=== PATIENT | female | born 1950 | race Caucasian/White ===

== ENCOUNTER → 2020-07-22 | Outpatient (CLI) | payer MEDICARE ==
--- NOTE | 2020-07-22 15:53 | REP ---
INDICATION: HUNTER CYST? LEFT KNEE. COMPARISON: None. TECHNIQUE: Real-time sonographic evaluation of left popliteal fossa are performed. FINDINGS: There is a large complex cystic mass in the left popliteal fossa containing thick septations and confluent echoes. This measures 9.5 x 4.1 x 6.3 cm. Popliteal vein is patent with no intraluminal thrombus. IMPRESSION: Large complex cystic mass left popliteal fossa containing thick septations and confluent echoes. It measures 9.5 x 4.1 x 6.3 cm. Differential diagnosis includes, but is not limited to, complex ganglion cyst, complex synovial cyst and complex meniscal cyst. <Electronically signed by Kike Israel > 07/22/20 [id number]
== END ==
LOC: M RAD 13:56
DX: M71.22 Synovial cyst of popliteal space [Baker], left knee (principal)

== ENCOUNTER → 2020-10-07 | Outpatient (CLI) | payer MEDICARE ==
--- NOTE | 2020-10-07 10:40 | REP ---
INDICATION: LT LEG PAIN ? DVT COMPARISON: None. TECHNIQUE: Israel scale and color Doppler evaluation using linear high frequency transducer. FINDINGS: Ultrasound examination of the left lower extremity deep venous structures from the common femoral vein to the popliteal vein demonstrates normal compressibility flow and wave patterns in response to respiration and augmentation. There is no evidence for deep venous thrombosis. Multiple lymph nodes in the left groin are identified measuring up to 32 x 7 x 13 mm. Complex cystic lesion in the popliteal fossa measuring 7.8 x 3.1 x 4.8 cm appears slightly decreased in size and complexity as compared to prior examination. IMPRESSION: 1. No evidence for deep venous thrombosis. 2. Complex cystic lesion in the left popliteal fossa appears slightly decreased and less complex as compared with prior examination. 3. Left groin adenopathy likely reactive. <Electronically signed by Bennett Sanchez > 10/07/20 [id number]
== END ==
LOC: M RAD 09:52
PROVIDERS: ATTEND Internal Medicine
DX: M79.605 Pain in left leg (principal)

== ENCOUNTER → 2020-10-13 | Outpatient (CLI) | payer MEDICARE ==
[2020-10-13 11:46] LABS: HEMATOCRIT 35.2 % (36.0-47.0); HEMOGLOBIN 10.9 g/dl (12.0-15.5); MEAN CORPUSCULAR HEMOGLOBIN 28.5 pg (27.0-33.0); MEAN CORPUSCULAR VOLUME 92.1 fl (80.0-96.0); PLATELET COUNT, AUTOMATED 495 10^3/uL (150-450); RED BLOOD COUNT 3.82 10^6/uL (4.00-5.40); WHITE BLOOD COUNT 6.1 10^3/uL (4.0-10.0)
[2020-10-13 11:54] LABS: APPEARANCE, URINE CLEAR (CLEAR); BACTERIA, URINE AUTO NEGATIVE (NEGATIVE); BILIRUBIN, URINE AUTO NEGATIVE (NEGATIVE); BLOOD, URINE BLOOD NEGATIVE (NEGATIVE); COLOR, URINE YELLOW (YELLOW); GLUCOSE, URINE (UA) AUTO NEGATIVE (NEGATIVE); KETONE, URINE AUTO NEGATIVE (NEGATIVE); LEUKOCYTE ESTERASE, URINE AUTO NEGATIVE (NEGATIVE); NITRITE, URINE AUTO NEGATIVE (NEGATIVE); PROTEIN, URINE AUTO NEGATIVE (NEGATIVE); RBC, URINE AUTO 2 /HPF (0-3); SPECIFIC GRAVITY URINE AUTO 1.009 (1.002-1.035); SQUAMOUS EPITHELIAL CELL UR AU 0 /HPF (0-6); UROBILINOGEN, URINE AUTO 0.2 mg/dL (0.0-2.0); WBC, URINE AUTO 1 /HPF (0-3)
[2020-10-13 12:21] LABS: ERYTHROCYTE SEDIMENTATION RATE 62 mm/hr (0-30)
[2020-10-13 12:50] LABS: ALBUMIN 3.1 GM/DL (3.2-5.2); ALT/SGPT 21 U/L (12-78); BILIRUBIN,TOTAL 0.4 MG/DL (0.2-1.0); BLOOD UREA NITROGEN 14 MG/DL (7-18); CALCIUM LEVEL 9.3 MG/DL (8.8-10.2); CARBON DIOXIDE LEVEL 31 MEQ/L (21-32); CHLORIDE LEVEL 102 MEQ/L (98-107); CREATININE FOR GFR 0.59 MG/DL (0.55-1.30); GLOMERULAR FILTRATION RATE > 60.0 (>39); GLUCOSE, FASTING 82 MG/DL (70-100); LDH LACTATE DEHYDROGENASE 191 U/L (84-246); POTASSIUM SERUM 3.8 MEQ/L (3.5-5.1); SODIUM LEVEL 138 MEQ/L (136-145); TOTAL PROTEIN 7.1 GM/DL (6.4-8.2)
== END ==
LOC: M WUC 08:49
PROVIDERS: ATTEND Internal Medicine
DX: R50.9 Fever, unspecified (principal)

== ENCOUNTER → 2020-10-27 | Outpatient (CLI) | payer MEDICARE ==
[~2020-10-27] MED LIST: ISOVUE-370 76% 100ML VIAL As Ordered ONE
--- NOTE | 2020-10-27 16:31 | REP ---
INDICATION: FATIGUE. COMPARISON: None TECHNIQUE: 100 cc Isovue 370 intravenously. FINDINGS: The mediastinum and pulmonary ch[place] are within normal limits. There is no mass or adenopathy. There are no pleural or pericardial effusions. The imaged osseous structures are within normal limits. Evaluation of the lung oneill shows mild biapical pleuroparenchymal scarring. There is a 4 mm size nodule in the right upper lobe. There are no other abnormal nodules, masses, or opacities. IMPRESSION: 4 mm size nodule in the right upper lobe. According to the revised Fleischner society criteria this represents category 3 lesion for which is six-month follow-up CT examination of the chest is recommended. Other findings as described above. <Electronically signed by Jeovany David > 10/27/20 [id number]
--- NOTE | 2020-10-27 17:11 | REP ---
INDICATION: FATIGUE. COMPARISON: None TECHNIQUE: Before and after 100 cc of Isovue 370 intravenously. No oral bowel preparatory contrast was administered prior to the exam. FINDINGS: The pre contrast enhanced portion examination shows multiple low-density lesions throughout the liver all having water or near water density Hounsfield unit readings. Hepatic and splenic densities are within normal limits. There are no nephrolith. Contrast-enhanced portion examination shows no evidence of an enhancing hepatic lesion. The spleen, pancreas, adrenal glands, and kidneys are within normal limits. The abdominal aorta and para aortic regions are within normal limits. Limited evaluation of the bowel loops and the mesenteries show no gross abnormalities. There is no free fluid or free air. There is no mass or adenopathy. There is mild distention of the urinary bladder. Bone window technique throughout the exam shows chronic spinal degenerative changes and bilateral L5 spondylolysis with a grade 1 spondylolisthesis. IMPRESSION: 1. Multiple pedis cysts. 2. Chronic osseous changes as described above. 3. The exam is limited without oral bowel preparatory contrast administration. 4. No evidence of acute disease with findings as described above. <Electronically signed by Jeovany David > 10/27/20 [id number]
== END ==
LOC: M RAD 14:39
PROVIDERS: ATTEND Internal Medicine
DX: R53.83 Other fatigue (principal); R91.1 Solitary pulmonary nodule; K76.89 Other specified diseases of liver
CPT/HCPCS: 71260; 74178; Q9967

== ENCOUNTER → 2020-11-17 | Outpatient (CLI) | payer MEDICARE ==
[2020-11-17 12:23] LABS: BASO # 0.1 10^3/uL (0.0-0.2); BASO % 1.2 % (0.0-1.0); EOS # 0.2 10^3/uL (0.0-0.5); EOS % 5.1 % (0.0-3.0); HEMATOCRIT 40.4 % (36.0-47.0); HEMOGLOBIN 12.8 g/dl (12.0-15.5); LYMPH # 1.5 10^3/uL (1.5-5.0); LYMPH % 33.8 % (24.0-44.0); MEAN CORPUSCULAR HEMOGLOBIN 29.2 pg (27.0-33.0); MEAN CORPUSCULAR HGB CONC 31.7 g/dl (32.0-36.5); MEAN CORPUSCULAR VOLUME 92.2 fl (80.0-96.0); MONO # 0.4 10^3/uL (0.0-0.8); MONO % 8.4 % (2.0-8.0); NEUTROPHILS # 2.2 10^3/uL (1.5-8.5); NEUTROPHILS % 51.3 % (36.0-66.0); PLATELET COUNT, AUTOMATED 227 10^3/uL (150-450); RED BLOOD COUNT 4.38 10^6/uL (4.00-5.40); WHITE BLOOD COUNT 4.3 10^3/uL (4.0-10.0)
[2020-11-17 13:37] LABS: ERYTHROCYTE SEDIMENTATION RATE 35 mm/hr (0-30)
== END ==
LOC: M WUC 09:14
PROVIDERS: ATTEND Internal Medicine
DX: R70.0 Elevated erythrocyte sedimentation rate (principal)